=== PATIENT | male | born 1965 | race Two or more races ===

== ENCOUNTER 2018-05-29 10:37 | Emergency (ER) | payer OTHER ==
[~2018-05-29] VITALS: Ht 170.2 cm; Wt 71.7 kg
--- NOTE | 2018-05-29 11:03 | PHYS DOC ---
Past Medical History Past Medical History: No Pertinent History Past Surgical History: Appendectomy Alcohol Use: None Drug Use: None Adult General Chief Complaint Chief Complaint: DIZZY/LIGHT HEADED HPI HPI Patient is 52 yo male who presents with complaint of dizziness and htn. Patient reports that yesterday (Wednesday) evening he began having dizziness and numbness in his lower extremities. This morning when he told his daughter about his symptoms, she took him to [facility] to check his BP which was 187/110. Daughter than brought patient into ED where his BP is 206/110. Patient denies chest pain , shortness of breath, cough, abdominal pain, nausea, diarrhea, or lower extremity swelling. He denies current numbness but admits he still feels dizzy, although he is not able to further describe his dizziness. Per his patient' s speech and mentation is normal. Patient denies recent travel, surgery, or prolonged immobilization. Patient does not have PCP and has not seen physician in 10 years. HPI taken through patient's daughter as patient is Slovak speaking. Review of Systems Review of Systems Constitutional: Denies fever or chills [] Eyes: Denies change in visual acuity, redness, or eye pain [] HENT: Denies nasal congestion or sore throat [] Respiratory: Denies cough or shortness of breath [] Cardiovascular: Denies chest pain, denies palpitations GI: Denies abdominal pain, nausea, vomiting, bloody stools or diarrhea [] : Denies dysuria or hematuria [] Musculoskeletal: Denies back pain or joint pain [] Integument: Denies rash or skin lesions [] Neurologic: Denies headache. Admits to episodic lower extremity numbness. Also admits to dizziness. Endocrine: Admits polyuria Complete systems were reviewed and found to be within normal limits, except as documented in this note. Current Medications Current Medications Current Medications Medications (Trade) Dose Ordered Sig/Johnson Start Time Stop Time Status Last Admin Dose Admin Clonidine HCl (Catapres) 0.1 mg 1X ONCE 05/29/18 11:15 05/29/18 11:25 DC 05/29/18 11:29 0.1 MG Allergies Allergies Allergies Coded Allergies Type Severity Reaction Last Updated Verified No Known Drug Allergies 05/29/18 No Physical Exam Physical Exam Constitutional: Well developed, well nourished, no acute distress, non-toxic appearance. [] HENT: Normocephalic, atraumatic,oropharynx moist, no oral exudates, nose normal. [] Eyes: PERRLA, EOMI, conjunctiva normal, no discharge. R eye has cataract at medial aspect of eye Neck: Normal range of motion, no tenderness Cardiovascular:Heart rate regular rhythm, no murmur [] Lungs & Thorax: Bilateral breath sounds clear to auscultation [] Abdomen: Bowel sounds normal, soft, no tenderness, well healed vertical midline scar Skin: Warm, dry, no erythema, no rash. [] Back: No tenderness Extremities: No tenderness, no cyanosis, no clubbing, ROM intact, no edema, Neurologic: Alert and oriented X 3, normal motor function, normal sensory function, no focal deficits noted. Face symmetric, speech clear. Muscle strength BL UE/LE 5/5. Facial, UE, LE dermatomal sensation intact bilaterally, no romberg, gait normal. [] Psychologic: Affect normal, judgement normal, mood normal. [] Current Patient Data Vital Signs Vital Signs Date Time Temp Pulse Resp B/P (MAP) Pulse Ox O2 Delivery O2 Flow Rate FiO2 05/29/18 11:29 81 184/106 05/29/18 10:46 99.3 16 98 Room Air 99.3 Lab Values Laboratory Tests Test 05/29/18 10:46 05/29/18 10:50 05/29/18 11:15 Glucose (Fingerstick) 160 mg/dL (70-99) H White Blood Count 5.9 x10^3/uL (4.0-11.0) Red Blood Count 5.44 x10^6/uL (4.30-5.70) Hemoglobin 15.1 g/dL (13.0-17.5) Hematocrit 45.3 % (39.0-53.0) Mean Corpuscular Volume 83 fL (79-100) Mean Corpuscular Hemoglobin 28 pg (25-35) Mean Corpuscular Hemoglobin Concent 33 g/dL (31-37) Red Cell Distribution Width 13.3 % (11.5-14.5) Platelet Count 233 x10^3/uL (140-400) Neutrophils (%) (Auto) 60 % (31-73) Lymphocytes (%) (Auto) 34 % (24-48) Monocytes (%) (Auto) 5 % (0-9) Eosinophils (%) (Auto) 1 % (0-3) Basophils (%) (Auto) 1 % (0-3) Neutrophils # (Auto) 3.6 x10^3uL (1.8-7.7) Lymphocytes # (Auto) 2.0 x10^3/uL (1.0-4.8) Monocytes # (Auto) 0.3 x10^3/uL (0.0-1.1) Eosinophils # (Auto) 0.1 x10^3/uL (0.0-0.7) Basophils # (Auto) 0.0 x10^3/uL (0.0-0.2) Prothrombin Time 12.9 SEC (11.7-14.0) Prothrombin Time INR 1.0 (0.8-1.1) PTT 29 SEC (24-38) Sodium Level 141 mmol/L (136-145) Potassium Level 3.9 mmol/L (3.5-5.1) Chloride Level 101 mmol/L (98-107) Carbon Dioxide Level 28 mmol/L (21-32) Anion Gap 12 (6-14) Blood Urea Nitrogen 12 mg/dL (8-26) Creatinine 0.9 mg/dL (0.7-1.3) Estimated GFR (Cockcroft-Gault) 89.3 BUN/Creatinine Ratio 13 (6-20) Glucose Level 155 mg/dL (70-99) H Calcium Level 9.0 mg/dL (8.5-10.1) Magnesium Level 1.9 mg/dL (1.8-2.4) Total Bilirubin 0.5 mg/dL (0.2-1.0) Aspartate Amino Transferase (AST) 21 U/L (15-37) Alanine Aminotransferase (ALT) 30 U/L (16-63) Alkaline Phosphatase 102 U/L (46-116) Creatine Kinase 117 U/L (39-308) Creatine Kinase MB (Mass) 0.9 ng/mL (0.0-3.6) Creatine Kinase MB Relative Index 0.8 % (0-4) Troponin I Quantitative < 0.017 ng/mL (0.000-0.055) Total Protein 7.8 g/dL (6.4-8.2) Albumin 3.7 g/dL (3.4-5.0) Albumin/Globulin Ratio 0.9 (1.0-1.7) L Urine Collection Type Unknown Urine Color Yellow Urine Clarity Clear Urine pH 6.0 Urine Specific [place] 1.025 Urine Protein Negative mg/dL (NEG-TRACE) Urine Glucose (UA) Negative mg/dL (NEG) Urine Ketones (Stick) Negative mg/dL (NEG) Urine Blood Negative (NEG) Urine Nitrite Negative (NEG) Urine Bilirubin Negative (NEG) Urine Urobilinogen Dipstick 0.2 mg/dL (0.2 mg/dL) Urine Leukocyte Esterase Negative (NEG) Urine RBC 0 /HPF (0-2) Urine WBC 0 /HPF (0-4) Urine Squamous Epithelial Cells Occ /LPF Urine Bacteria 0 /HPF (0-FEW) Urine Mucus Slight /LPF Laboratory Tests 05/29/18 10:50 Laboratory Tests 05/29/18 10:50 EKG EKG [@1044; HR 71 BPM; sinus rhythm, T wave inversions I, aVL, V4, V5, V6. ] Radiology/Procedures Radiology/Procedures [PROCEDURE: CT HEAD WO CONTRAST PQRS Compliance Statement: One or more of the following individualized dose reduction techniques were utilized for this examination: 1. Automated exposure control 2. Adjustment of the mA and/or kV according to patient size 3. Use of iterative reconstruction technique CT head without contrast 05/29/2018 11:54 AM INDICATION: Dizziness today COMPARISON: None available TECHNIQUE: Multiple axial CT images of the head were obtained from skull base through the vertex without intravenous contrast. FINDINGS: Head: Ventricles, sulci and basal cisterns are within normal limits. There is no hydrocephalus. Kelsey-white matter differentiation is normal. There is no acute intracranial hemorrhage. There is no mass, mass effect or midline shift. Posterior fossa is normal in appearance. Punctate calcification is noted in the right middle frontal gyrus. Visualized portions of the orbits are normal. Paranasal sinuses are well aerated. Mastoid air cells are well aerated. Scalp and calvaria are normal. IMPRESSION: No acute intracranial hemorrhage. Electronically signed by: Cecilia Munoz MD (05/29/2018 12:05 PM) [facility]] Course & Med Decision Making Course & Med Decision Making Patient is 52 yo male who presents with complaint of dizziness since last night (Wednesday). Patient checked his BP at [facility] and it was SBP 180s. Patient presented to ED where BP 206/110. Patient neurologically intact, with facial symmetry, normal gait, negative romberg, upper and lower muscle strength 5/5 and equal dermatomal sensation bilaterally. BP treated w/ clonidine and lowered to SBP 180s and symptoms resolved. CT head revealed no acute intracranial hemorrhage. Labs unremarkable, including negative troponin. EKG unremarkable. As patient's BP responded to clonidine felt patient was okay to dc home with clonidine for future symptomatic events. Also instructed patient to establish care with PCP, and gave patient information about PCPs at [facility] and also free clinics in the area. Patient stable for discharge with outpatient follow-up with PCP. Discussed findings and plan with patient and family, who acknowledge understanding and agreement. Dragon Disclaimer Dragon Disclaimer This electronic medical record was generated, in whole or in part, using a voice recognition dictation system. Departure Departure Impression: Primary Impression: Hypertension Additional Impression: Dizziness Disposition: 01 HOME, SELF-CARE Condition: STABLE Referrals: GURMEET MENDIOLA MD Patient Instructions: Dizziness, [id number], Hypertension Scripts Clonidine Hcl (CLONIDINE HCL) 0.1 Mg Tablet 0.1 MG PO BID PRN for ELEVATED BP, SEE COMMENTS, #14 TAB Take for systolic blood pressure greater than 185 and/or diastolic blood pressure greater than 100. Prov: GURMEET PRIETO DO 05/29/18 Problem Qualifiers Primary Impression: Hypertension Hypertension type: unspecified Qualified Codes: I10 - Essential (primary) hypertension GURMEET PRIETO DO May 29, 2018 11:02
[2018-05-29] MEDS ORDERED: cloNIDine HCL 0.1 MG TABLET PO ONE (11:15)
--- NOTE | 2018-05-29 11:16 | EKG ---
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
[2018-05-29 11:30] LABS: BILIRUBIN,URINE NEGATIVE (NEG); CLARITY,URINE CLEAR; COLOR,URINE YELLOW; NITRITE,URINE NEGATIVE (NEG); PROTEIN,URINE NEGATIVE (NEG-TRACE); UROBILINOGEN,URINE 0.2 mg/dL (0.2 mg/dL)
[2018-05-29 11:30] LABS: BASO % 1 % (0-3); CREATININE 0.9 mg/dL (0.7-1.3); EOS # 0.1 x10^3/uL (0.0-0.7); EOS % 1 % (0-3); GFR 89.3; HEMATOCRIT 45.3 % (39.0-53.0); HEMOGLOBIN 15.1 g/dL (13.0-17.5); LYMPH % 34 % (24-48); MEAN CORPUSCULAR HEMOGLOBIN 28 pg (25-35); MEAN CORPUSCULAR HGB CONC 33 g/dL (31-37); MEAN CORPUSCULAR VOLUME 83 fL (79-100); MONO # 0.3 x10^3/uL (0.0-1.1); MONO % 5 % (0-9); NEUT # 3.6 x10^3uL (1.8-7.7); NEUT % 60 % (31-73); PLATELET COUNT 233 x10^3/uL (140-400); POTASSIUM 3.9 mmol/L (3.5-5.1); RED BLOOD COUNT 5.44 x10^6/uL (4.30-5.70); RED CELL DISTRIBUTION WIDTH 13.3 % (11.5-14.5); WHITE BLOOD COUNT 5.9 x10^3/uL (4.0-11.0)
[2018-05-29 11:34] LABS: PROTHROMBIN TIME PATIENT 12.9 SEC (11.7-14.0)
[2018-05-29 11:35] LABS: ALBUMIN 3.7 g/dL (3.4-5.0); ALBUMIN/GLOBULIN RATIO 0.9 (1.0-1.7); MAGNESIUM 1.9 mg/dL (1.8-2.4); TOTAL BILIRUBIN 0.5 mg/dL (0.2-1.0); TOTAL PROTEIN 7.8 g/dL (6.4-8.2)
[2018-05-29 12:03] LABS: SQUAMOUS EPITHELIAL CELL,UR OCC /LPF
[2018-05-29 12:04] LABS: BACTERIA,URINE 0 /HPF (0-FEW); RBC,URINE 0 /HPF (0-2); WBC,URINE 0 /HPF (0-4)
--- NOTE | 2018-05-29 12:10 | RAD ---
PQRS Compliance Statement: One or more of the following individualized dose reduction techniques were utilized for this examination: 1. Automated exposure control 2. Adjustment of the mA and/or kV according to patient size 3. Use of iterative reconstruction technique CT head without contrast 05/29/2018 11:54 AM INDICATION: Dizziness today COMPARISON: None available TECHNIQUE: Multiple axial CT images of the head were obtained from skull base through the vertex without intravenous contrast. FINDINGS: Head: Ventricles, sulci and basal cisterns are within normal limits. There is no hydrocephalus. Kelsey-white matter differentiation is normal. There is no acute intracranial hemorrhage. There is no mass, mass effect or midline shift. Posterior fossa is normal in appearance. Punctate calcification is noted in the right middle frontal gyrus. Visualized portions of the orbits are normal. Paranasal sinuses are well aerated. Mastoid air cells are well aerated. Scalp and calvaria are normal. IMPRESSION: No acute intracranial hemorrhage. Electronically signed by: Cecilia Munoz MD (05/29/2018 12:05 PM) [facility]
[2018-05-29] MEDS ORDERED: CLON0.1T PO (12:49)
[2018-05-29 12:55] VITALS: BP 161/95
[2018-05-29] MEDS ORDERED: ONDA4TAB12 PO (17:25)
== END 2018-05-29 12:57 | disposition home or self-care (01) ==
LOC: ER 10:37
DX: I10 Essential (primary) hypertension (principal); R42 Dizziness and giddiness; R35.8 Other polyuria; R20.0 Anesthesia of skin; Z90.89 Acquired absence of other organs
CPT/HCPCS: 36415; 70450; 80053; 81001; 82553; 82962; 83735; 84484; 85025; 85610; 85730; 93005; 99284-25

== ENCOUNTER 2018-05-29 14:23 | Emergency (ER) | payer OTHER ==
[~2018-05-29] VITALS: Ht 170.2 cm; Wt 71.7 kg
[~2018-05-29 14:23] MED LIST: CLON0.1T PO
--- NOTE | 2018-05-29 14:57 | PHYS DOC ---
Past Medical History Past Medical History: No Pertinent History Past Surgical History: Appendectomy Alcohol Use: Rarely Drug Use: None Adult General Chief Complaint Chief Complaint: NAUSEA/VOMITING/DIARRHA HPI HPI Patient is 52 yo male who presents with nausea, vomiting, lightheadedness. Patient was seen in ED earlier today for chief complaint of dizziness and hypertension. Patient's SBP prior to treatment was 206/110. Patient treated with lowest dose clonidine possible and dc to home w/ prescription. At discharge patient's SBP in 150s. Patient was at pharmacy to fill prescription when he became dizzy, weak, and vomited. Patient continued to vomit and returned to ED w/ SBP 130s. Patient reports he feels weak and as though he will pass out, although he is unable to further explain his symptoms. HPI obtained through patient's daughter as patient is Omani speaking. Review of Systems Review of Systems Constitutional: Denies fever or chills , admits malaise Eyes: Denies change in visual acuity, redness, or eye pain [] HENT: Denies nasal congestion or sore throat [] Respiratory: Denies cough or shortness of breath [] Cardiovascular: Denies chest pain. Denies palpitations GI: Denies abdominal pain, bloody stools or diarrhea. Admits nausea and vomiting. Denies bloody emesis. : Denies dysuria or hematuria [] Musculoskeletal: Denies back pain or joint pain [] Integument: Denies rash or skin lesions [] Neurologic: Denies headache, focal weakness or sensory changes [] Endocrine: Denies polyuria or polydipsia [] Complete systems were reviewed and found to be within normal limits, except as documented in this note. Current Medications Current Medications Current Medications Medications (Trade) Dose Ordered Sig/Johnson Start Time Stop Time Status Last Admin Dose Admin Ondansetron HCl (Zofran) 4 mg 1X ONCE 05/29/18 15:00 05/29/18 15:01 DC 05/29/18 14:58 4 MG Sodium Chloride 1,000 ml @ 1,000 mls/hr 1X ONCE 05/29/18 16:15 05/29/18 17:14 DC 05/29/18 16:30 1,000 MLS/HR Allergies Allergies Allergies Coded Allergies Type Severity Reaction Last Updated Verified No Known Drug Allergies 05/29/18 No Physical Exam Physical Exam Constitutional: Well developed, well nourished, no acute distress, non-toxic appearance, pale HENT: Normocephalic, atraumatic,oropharynx moist, no oral exudates, nose normal. [] Eyes: PERRLA, EOMI, conjunctiva normal, no discharge, cataract present medial aspect R eye. Neck: Normal range of motion, no tenderness, supple Cardiovascular:Heart rate regular rhythm, no murmur [] Lungs & Thorax: Bilateral breath sounds clear to auscultation [] Abdomen: Bowel sounds normal, soft, no tenderness, vertical midline scar. Skin: Warm, dry, no erythema, no rash, clammy Back: No tenderness, no CVA tenderness. [] Extremities: No tenderness, no cyanosis, no clubbing, ROM intact, no edema. [] Neurologic: Alert and oriented X 3, normal motor function, normal sensory function, no focal deficits noted. [] Psychologic: Affect normal, judgement normal, mood normal. [] Current Patient Data Vital Signs Vital Signs Date Time Temp Pulse Resp B/P (MAP) Pulse Ox O2 Delivery O2 Flow Rate FiO2 05/29/18 14:35 98.0 60 16 152/98 (116) 97 Room Air 98.0 Lab Values Laboratory Tests Test 05/29/18 15:00 Glucose (Fingerstick) 97 mg/dL (70-99) EKG EKG [@1441; HR 60; sinus rhythm. T wave inversions in lateral leads; similar inversions present in previous EKG from earlier today. ] Radiology/Procedures Radiology/Procedures [] Course & Med Decision Making Course & Med Decision Making Pertinent Labs and Imaging studies reviewed. (See chart for details) [] Dragon Disclaimer Dragon Disclaimer This electronic medical record was generated, in whole or in part, using a voice recognition dictation system. Departure Departure Impression: Primary Impression: Lightheaded Additional Impression: Nausea & vomiting Disposition: 01 HOME, SELF-CARE Condition: IMPROVED Referrals: NO PCP (PCP) GURMEET MENDIOLA MD Patient Instructions: Dizziness, [id number], Orthostatic Hypotension Additional Instructions: Discontinue clonidine prescription. Scripts Ondansetron (ONDANSETRON ODT) 4 Mg Tab.rapdis 1 TAB PO PRN Q6-8HRS for VOMITING, #16 TAB Prov: GURMEET PRIETO DO 05/29/18 Problem Qualifiers Additional Impression: Nausea & vomiting Vomiting type: unspecified Vomiting Intractability: unspecified Qualified Codes: R11.2 - Nausea with vomiting, unspecified GURMEET PRIETO DO May 29, 2018 14:57
[2018-05-29] MEDS ORDERED: IV NORMAL SALINE 1000ML BAG 1,000 ML IV ONE ×2 (15:00→16:15)
[2018-05-29] MEDS ORDERED: ONDANSETRON PF 4 MG/2 ML VIAL. IV ONE (15:00)
--- NOTE | 2018-05-29 15:15 | EKG ---
[facility] [address] [place] [address] Test Date: 2018-05-29 Test Time: 14:37:58 Pat Name: JAIME MEJIA Department: Room: Gender: Account Underwriter: : 1965 Requested By: GURMEET PRIETO Order Number: [id number] Reading MD: Carlos Godinez Measurements Intervals [place] Rate: 60 P: 24 ND: 164 QRS: 19 QRSD: 88 T: 140 QT: 440 QTc: 440 Interpretive Statements SINUS RHYTHM T ABNORMALITY IN ANTEROLATERAL LEADS POSSIBLE ISCHEMIA Electronically Signed On 05-30-2018 10:10:27 NIGHT ORDER SELECTOR by Carlos Godinez
[2018-05-29 17:15] VITALS: BP 148/85
[2018-05-29] MEDS ORDERED: ONDA4TAB12 PO (17:25)
== END 2018-05-29 17:32 | disposition home or self-care (01) ==
LOC: ER 14:23
DX: R11.2 Nausea with vomiting, unspecified (principal); R42 Dizziness and giddiness; R53.1 Weakness; Z90.89 Acquired absence of other organs
CPT/HCPCS: 82962; 93005; 96361; 96374; 99284; J2405; J7030; 99283